=== PATIENT | female | born 1945 | race Caucasian/White ===

== ENCOUNTER → 2016-10-29 | Outpatient (CLI) | payer BC ==
[~2016-10-29] MED LIST: OPTIRAY 320 IV PRN
--- NOTE | 2016-10-29 12:18 | DIAGNOSTIC IMAGING REPORT ---
CT OF THE ABDOMEN AND PELVIS WITH AND WITHOUT CONTRAST ADRENAL PROTOCOL CLINICAL HISTORY: Elevated testosterone level in female. COMPARISON STUDY: Renal and pelvic ultrasound September 28, 2016. TECHNIQUE: Unenhanced, nephrographic and 15 minute delayed phase imaging was performed. Injection of 92 cc of Optiray [address] DOSE: 2668.32 mGycm FINDINGS: Lung bases are clear. No adrenal lesions are present. There is fatty infiltration of the liver. No biliary or pancreatic ductal dilatation is present. There are innumerable hypodense splenic lesions which measure up to 2.1 cm. These lesions demonstrate mild enhancement. Borderline splenomegaly is noted. There is no abdominal or pelvic lymphadenopathy. There is scarring within the midpole of the left kidney. There is a 7 mm right renal cyst. A few subcentimeter renal lesions are too small to characterize. The caliber and wall thickness of small and large bowel are normal. There is sigmoid diverticulosis without evidence for acute diverticulitis. No suspicious skeletal lesions are identified. IMPRESSION: 1. No adrenal masses. Normal CT of the adrenal glands. 2. Numerous hypodense mildly enhancing splenic lesions. These are nonspecific although likely benign. A follow-up contrast-enhanced CT of the abdomen in 6 months to ensure stability is recommended. 3. Fatty liver. Electronically signed by: To Shearer M.D. 10/29/2016 12:16 PM
== END | disposition home or self-care (01) ==
LOC: C.CTS 10:50
PROVIDERS: ATTEND Internal Medicine Endocrinology, Diabetes & Metabolism
DX: E34.9 Endocrine disorder, unspecified (principal); D73.89 Other diseases of spleen; K76.0 Fatty (change of) liver, not elsewhere classified; R89.9 Unspecified abnormal finding in specimens from other organs, systems and tissues

== ENCOUNTER → 2016-10-29 | Outpatient (CLI) | payer BC | END | disposition home or self-care (01) | LOC: C.LAB1850 11:35 | PROVIDERS: ATTEND Internal Medicine Endocrinology, Diabetes & Metabolism | DX: R89.9 Unspecified abnormal finding in specimens from other organs, systems and tissues (principal); E34.9 Endocrine disorder, unspecified ==

== ENCOUNTER → 2016-12-21 | Outpatient (CLI) | payer BC | END | disposition home or self-care (01) | LOC: C.LABMFLN 08:58 | PROVIDERS: ATTEND Obstetrics & Gynecology Reproductive Endocrinology | DX: E28.0 Estrogen excess (principal); R79.89 Other specified abnormal findings of blood chemistry ==

== ENCOUNTER → 2016-12-24 | Outpatient (CLI) | payer BC | END | disposition home or self-care (01) | LOC: C.LABMFLN 08:00 | PROVIDERS: ATTEND Obstetrics & Gynecology Reproductive Endocrinology | DX: E28.0 Estrogen excess (principal); R79.89 Other specified abnormal findings of blood chemistry ==

== ENCOUNTER → 2017-03-21 | Outpatient (CLI) | payer BC | END | disposition home or self-care (01) | LOC: C.LABMFLN 14:03 | PROVIDERS: ATTEND Obstetrics & Gynecology Reproductive Endocrinology | DX: Z79.899 Other long term (current) drug therapy (principal) ==

== ENCOUNTER → 2017-04-26 | Outpatient (CLI) | payer BC ==
[2017-05-03 22:07] LABS: V-ZOSTER CULT NOT ISOLATED
== END | disposition home or self-care (01) ==
LOC: C.LABSPEC 13:34
PROVIDERS: ATTEND Dermatology
DX: L25.9 Unspecified contact dermatitis, unspecified cause (principal); R21 Rash and other nonspecific skin eruption

== ENCOUNTER → 2017-09-25 | Outpatient (CLI) | payer BC | END | disposition home or self-care (01) | LOC: C.PATHSPEC 16:21 | PROVIDERS: ATTEND Dermatology | DX: L82.0 Inflamed seborrheic keratosis (principal) ==

== ENCOUNTER → 2017-11-20 | Outpatient (CLI) | payer BC | END | disposition home or self-care (01) | LOC: C.RDSM 17:42 | PROVIDERS: ATTEND Orthopaedic Surgery | DX: R52 Pain, unspecified (principal) ==

== ENCOUNTER → 2017-12-09 | Outpatient (CLI) | payer BC ==
[2017-12-09 12:15] LABS: BASO % 0.6 %; BASO ABS # 0.06 K/uL (0-0.2); EOS % 4.2 %; EOS ABS # 0.42 K/uL (0-0.5); HEMATOCRIT 39.3 % (37-47); HEMOGLOBIN 13.1 g/dL (12.0-16.0); IG# 0.03 K/uL (0.00-0.02); LYMPH % 24.6 %; LYMPH ABS # 2.45 K/uL (1.2-3.4); MEAN CELL VOLUME 89.7 fL (80-100); MEAN CORPUSCULAR HEMOGLOBIN 29.9 pg (25-34); MEAN CORPUSCULAR HGB CONC 33.3 g/dl (32-36); MEAN PLATELET VOLUME 10.2 fL (7.4-10.4); MONO % 8.9 %; MONO ABS # 0.89 K/uL (0.11-0.59); NEUT % 61.4 %; PLATELET COUNT 175 K/uL (130-400); RED CELL DISTRIBUTION WIDTH CV 14.5 % (11.5-14.5); RED CELL DISTRIBUTION WIDTH SD 47.3 fL (36.4-46.3); WHITE BLOOD COUNT 9.95 K/uL (4.8-10.8)
[2017-12-09 13:33] LABS: ALBUMIN 3.7 gm/dl (3.4-5.0); ALT/SGPT 37 U/L (12-78); BLOOD UREA NITROGEN 26 mg/dl (7-18); CALCIUM 9.1 mg/dl (8.5-10.1); CARBON DIOXIDE 28 mmol/L (21-32); CHOLESTEROL 200 mg/dl (0-200); CREATININE 0.97 mg/dl (0.60-1.20); GLUCOSE 88 mg/dl (70-99); POTASSIUM 4.4 mmol/L (3.5-5.1); SODIUM 139 mmol/L (136-145)
[2017-12-09 13:43] LABS: ALKALINE PHOSPHATASE 64 U/L (45-117); AST/SGOT 19 U/L (15-37); LDL CHOLESTEROL CALCULATED 112 mg/dl; TOTAL PROTEIN 7.7 gm/dl (6.4-8.2)
== END | disposition home or self-care (01) ==
LOC: C.LABMFLN 09:57
PROVIDERS: ATTEND Family Medicine
DX: E78.00 Pure hypercholesterolemia, unspecified (principal); D23.5 Other benign neoplasm of skin of trunk; L65.9 Nonscarring hair loss, unspecified; R89.9 Unspecified abnormal finding in specimens from other organs, systems and tissues; R79.89 Other specified abnormal findings of blood chemistry; L25.9 Unspecified contact dermatitis, unspecified cause; E03.9 Hypothyroidism, unspecified; Z85.828 Personal history of other malignant neoplasm of skin

== ENCOUNTER 2018-01-30 13:26 | Emergency (ER) | payer BC ==
[~2018-01-30] VITALS: Ht 160 cm; Wt 87.0 kg
[2018-01-30 13:29] VITALS: TEMP 36.5; Ht 160 cm; Wt 87.0 kg
--- NOTE | 2018-01-30 13:57 | EMERGENCY ROOM VISIT NOTE ---
History First contact with patient: 13:38 Chief Complaint: FOOT PAIN Stated Complaint: FOOT PAIN History of Present Illness The patient is a 72 year old female who presents to the Emergency Room who states that 2 nights ago she woke up at 4 am with sharp foot pain on the outer side of her left foot. 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 Pain is 7/10 without putting weight on it, and 10/10 when standing on it, and is unable to put weight on it. Denies h/o trauma to the area, open cuts in the skin, toe fungus, recent pedicures, surgeries to the area. Pt is on chronic therapy for hypertension and hyperlipidemia, but is not diabetic or immunosuppressed. Has no h/o gout. Denies beer drinking, eats lean meats. Denies chest pain difficulty breathing skin rashes abdominal pain numbness tingling. Review of Systems ROS See HPI for pertinent positives and negatives. Social History Smoking Status: Never Smoker Current/Historical Medications Scheduled Aspirin (Aspirin Ec), 81 MG PO DAILY Calcium Carbonate-Cholecalcife (Calcium Plus Vitamin D3), 1 CAP PO DAILY Coenzyme Q10 (Ubidecarenone) (Co Q 10), 1 CAP PO DAILY Cranberry-Vitamin C-Vitamin E (Cranberry Plus Vitamin C), 1 CAP PO DAILY Fish Oil ([place]-3), 1 CAP PO DAILY Krill Oil (Krill Oil), 350 MG PO DAILY Levothyroxine Sodium (Levothyroxine Sodium), 1 TAB PO DAILY Lisinopril (Zestril), 20 MG PO DAILY Physical Exam Vital Signs Date Time Temp Pulse Resp B/P (MAP) Pulse Ox O2 Delivery O2 Flow Rate FiO2 4//18 13:29 36.5 96 18 151/72 97 Room Air Physical Exam GENERAL: Awake, alert, well-appearing, in no distress HENT: Normocephalic, atraumatic. EYES: Normal conjunctiva. Sclera non-icteric. NECK: Supple. FROM. No JVD. RESPIRATORY: Clear to auscultation. CARDIAC: Regular rate, normal rhythm. Extremities warm and well perfused. Pulses equal. LOWER EXTREMITIES: Calves are equal size bilaterally and non-tender. No edema. No discoloration. MUSCULOSKELETAL: left foot is tender to palpation along lateral dorsal and plantar surface and along 5th and 4th metatarsal bones. Mild erythema and edema local to points of tenderness. No abrasions. Neurovascularly in tact. Distal phalanges are in tact and non tender. NEURO: No sensory motor deficits noted. SKIN: No rash or jaundice noted. Medical Decision & Procedures Laboratory Results 01/30/18 14:10 Red Blood Count 4.68, Mean Corpuscular Volume 88.2, Mean Corpuscular Hemoglobin 29.7, Mean Corpuscular Hemoglobin Concent 33.7, Mean Platelet Volume 10.2, Neutrophils (%) (Auto) 64.0, Lymphocytes (%) (Auto) 24.7, Monocytes (%) (Auto) 8.3, Eosinophils (%) (Auto) 2.6, Basophils (%) (Auto) 0.2, Neutrophils # (Auto) 5.92, Lymphocytes # (Auto) 2.29, Monocytes # (Auto) 0.77, Eosinophils # (Auto) 0.24, Basophils # (Auto) 0.02 01/30/18 14:10 Test 01/30/18 14:10 White Blood Count 9.26 K/uL (4.8-10.8) Red Blood Count 4.68 M/uL (4.2-5.4) Hemoglobin 13.9 g/dL (12.0-16.0) Hematocrit 41.3 % (37-47) Mean Corpuscular Volume 88.2 fL (80-100) Mean Corpuscular Hemoglobin 29.7 pg (25-34) Mean Corpuscular Hemoglobin Concent 33.7 g/dl (32-36) Platelet Count 164 K/uL (130-400) Mean Platelet Volume 10.2 fL (7.4-10.4) Neutrophils (%) (Auto) 64.0 % Lymphocytes (%) (Auto) 24.7 % Monocytes (%) (Auto) 8.3 % Eosinophils (%) (Auto) 2.6 % Basophils (%) (Auto) 0.2 % Neutrophils # (Auto) 5.92 K/uL (1.4-6.5) Lymphocytes # (Auto) 2.29 K/uL (1.2-3.4) Monocytes # (Auto) 0.77 K/uL (0.11-0.59) Eosinophils # (Auto) 0.24 K/uL (0-0.5) Basophils # (Auto) 0.02 K/uL (0-0.2) RDW Standard Deviation 44.5 fL (36.4-46.3) RDW Coefficient of Variation 13.8 % (11.5-14.5) Immature Granulocyte % (Auto) 0.2 % Immature Granulocyte # (Auto) 0.02 K/uL (0.00-0.02) Anion Gap 6.0 mmol/L (3-11) Est Creatinine Clear Calc Drug Dose 36.6 ml/min Estimated GFR () 42.4 Estimated GFR (Non- 36.6 BUN/Creatinine Ratio 17.6 (10-20) Uric Acid 8.7 mg/dl (2.6-7.2) Calcium Level 9.2 mg/dl (8.5-10.1) Total Bilirubin 0.5 mg/dl (0.2-1) Aspartate Amino Transf (AST/SGOT) 21 U/L (15-37) Alanine Aminotransferase (ALT/SGPT) 40 U/L (12-78) Alkaline Phosphatase 75 U/L (45-117) Total Protein 7.8 gm/dl (6.4-8.2) Albumin 3.8 gm/dl (3.4-5.0) Globulin 4.0 gm/dl (2.5-4.0) Albumin/Globulin Ratio 1.0 (0.9-2) ED Course 1339 Reviewed record, saw and assessed pt. Full history and phys exam done. 1400 Ordered cmp, cbc, uric acid, Foot XR. 1515 XR of foot is normal. Discussed with pt results, elev uric acid, and location of pain and redness and swelling more consistent with cellulitis -- keflex ordered, script sent to pharmacy. Pt agreeable with plan. Medical Decision The patient is a 72 year old female who presents to the Emergency Room who states that 2 nights ago she woke up at 4 am with sharp foot pain on the outer side of her left foot. 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 Pain is 7/10 without putting weight on it, and 10/10 when standing on it, and is unable to put weight on it. Denies h/o trauma to the area, open cuts in the skin, toe fungus, recent pedicures, surgeries to the area. Pt is on chronic therapy for hypertension and hyperlipidemia, but is not diabetic or immunosuppressed. Has no h/o gout. Denies beer drinking, eats lean meats. Denies chest pain difficulty breathing skin rashes abdominal pain numbness tingling. Diff dx: osteomyelitis, cellulitis, gout, fracture XR of foot reviewed, no evidence of overt fracture or abscess. Labs reviewed, pt does not have an elevated wbc. Uric acid is 8.7. Glucose is 144 and creatinine is 1.4 (baseline appears to be 0.9). Despite elev uric acid, redness swelling and pain is clearly over the 4th and 5th metatarsal area. Erythematous border was outlined here in the ED. Keflex given to empirically treat cellulitis. Instructions given to pt that should the redness significantly increase, with streaking up the leg and calf, to return to the ED. Regarding her abnormal lab values, these should be repeated in the primary office. Close follow up for resolution of symptoms is recommended. Pt agreeable with plan, and also to elevate extremity and use warm compresses to increase blood flow. Blood Pressure Screening Patient's blood pressure: Elevated blood pressure Blood pressure disposition: Referred to PCP Impression Primary Impression: Cellulitis of foot, left Departure Information Dispostion Home / Self-Care Condition GOOD Prescriptions Cephalexin Monohydrate (Keflex) 500 Mg Cap 1 CAP PO BID for 10 Days, #20 CAP Prov: Nadja Zhong M.D. 01/30/18 Referrals Jose Francisco Donahue M.D. (PCP) Patient Instructions My [facility] Resident Tracking Resident Involvement: Resident Care Provided Care Provided: Adult ED
--- NOTE | 2018-01-30 14:18 | EMERGENCY ROOM VISIT NOTE ---
History First contact with patient: 13:38 Chief Complaint: FOOT PAIN Stated Complaint: FOOT PAIN History of Present Illness The patient is a 72 year old female who presents to the Emergency Room with complaints of left lateral foot pain. The patient also notes the following associated symptoms, redness and swelling. This started today and is worse with walking. The patient has tried ibuprofen for relieving factors. 710 pain. Pt denies LOC, headache, fevers, chills, diaphoresis, visual changes, neck pain, chest pain, breathing difficulties, nausea, vomiting, abdominal pain , back pain, melena, hematochezia, urinary symptoms, numbness, weakness, lymphadenopathy, rash, or other complaints. Review of Systems See HPI for pertinent positives and negatives. A total of ten systems were reviewed and were otherwise negative. Social History Smoking Status: Never Smoker Current/Historical Medications Scheduled Aspirin (Aspirin Ec), 81 MG PO DAILY Calcium Carbonate-Cholecalcife (Calcium Plus Vitamin D3), 1 CAP PO DAILY Cephalexin Monohydrate (Keflex), 1 CAP PO BID Coenzyme Q10 (Ubidecarenone) (Co Q 10), 1 CAP PO DAILY Cranberry-Vitamin C-Vitamin E (Cranberry Plus Vitamin C), 1 CAP PO DAILY Fish Oil ([place]-3), 1 CAP PO DAILY Krill Oil (Krill Oil), 350 MG PO DAILY Levothyroxine Sodium (Levothyroxine Sodium), 1 TAB PO DAILY Lisinopril (Zestril), 20 MG PO DAILY Physical Exam Vital Signs Date Time Temp Pulse Resp B/P (MAP) Pulse Ox O2 Delivery O2 Flow Rate FiO2 01/30/18 15:33 88 18 148/82 97 Room Air 01/30/18 13:29 36.5 96 18 151/72 97 Room Air Physical Exam GENERAL: Awake, alert, well-appearing, in no distress HENT: Normocephalic, atraumatic. Oropharynx unremarkable. EYES: Normal conjunctiva. Sclera non-icteric. NECK: Supple. No nuchal rigidity. FROM. No masses. RESPIRATORY: Clear to auscultation. No wheezes. No rales. Normal respiratory effort. CARDIAC: Normal rate. Normal rhythm. No murmurs. No rubs. Extremities warm and well perfused. Pulses equal. No JVD. GI: Soft, non-distended. No tenderness to palpation. No rebound or guarding. No masses. RECTAL: Deferred. MUSCULOSKELETAL: Atraumatic. Chest examination reveals no tenderness. No joint edema. There is an erythematous patch over the lateral left foot. This is not over any of her joints. It is over the fourth and fifth metatarsal area. It is tender to the touch. There is no crepitus. No open wounds. No obvious bony deformity. No significant tenderness to the proximal or distal fifth metatarsal. Ankle joint appears normal. LOWER EXTREMITIES: Calves are equal size bilaterally and non-tender. No edema. No discoloration. NEURO: Normal sensorium. No sensory or motor deficits noted. SKIN: No rash or jaundice noted. No skin breakdown on the foot. Medical Decision & Procedures Laboratory Results 01/30/18 14:10 Red Blood Count 4.68, Mean Corpuscular Volume 88.2, Mean Corpuscular Hemoglobin 29.7, Mean Corpuscular Hemoglobin Concent 33.7, Mean Platelet Volume 10.2, Neutrophils (%) (Auto) 64.0, Lymphocytes (%) (Auto) 24.7, Monocytes (%) (Auto) 8.3, Eosinophils (%) (Auto) 2.6, Basophils (%) (Auto) 0.2, Neutrophils # (Auto) 5.92, Lymphocytes # (Auto) 2.29, Monocytes # (Auto) 0.77, Eosinophils # (Auto) 0.24, Basophils # (Auto) 0.02 01/30/18 14:10 Test 01/30/18 14:10 White Blood Count 9.26 K/uL (4.8-10.8) Red Blood Count 4.68 M/uL (4.2-5.4) Hemoglobin 13.9 g/dL (12.0-16.0) Hematocrit 41.3 % (37-47) Mean Corpuscular Volume 88.2 fL (80-100) Mean Corpuscular Hemoglobin 29.7 pg (25-34) Mean Corpuscular Hemoglobin Concent 33.7 g/dl (32-36) Platelet Count 164 K/uL (130-400) Mean Platelet Volume 10.2 fL (7.4-10.4) Neutrophils (%) (Auto) 64.0 % Lymphocytes (%) (Auto) 24.7 % Monocytes (%) (Auto) 8.3 % Eosinophils (%) (Auto) 2.6 % Basophils (%) (Auto) 0.2 % Neutrophils # (Auto) 5.92 K/uL (1.4-6.5) Lymphocytes # (Auto) 2.29 K/uL (1.2-3.4) Monocytes # (Auto) 0.77 K/uL (0.11-0.59) Eosinophils # (Auto) 0.24 K/uL (0-0.5) Basophils # (Auto) 0.02 K/uL (0-0.2) RDW Standard Deviation 44.5 fL (36.4-46.3) RDW Coefficient of Variation 13.8 % (11.5-14.5) Immature Granulocyte % (Auto) 0.2 % Immature Granulocyte # (Auto) 0.02 K/uL (0.00-0.02) Anion Gap 6.0 mmol/L (3-11) Est Creatinine Clear Calc Drug Dose 36.6 ml/min Estimated GFR () 42.4 Estimated GFR (Non- 36.6 BUN/Creatinine Ratio 17.6 (10-20) Uric Acid 8.7 mg/dl (2.6-7.2) Calcium Level 9.2 mg/dl (8.5-10.1) Total Bilirubin 0.5 mg/dl (0.2-1) Aspartate Amino Transf (AST/SGOT) 21 U/L (15-37) Alanine Aminotransferase (ALT/SGPT) 40 U/L (12-78) Alkaline Phosphatase 75 U/L (45-117) Total Protein 7.8 gm/dl (6.4-8.2) Albumin 3.8 gm/dl (3.4-5.0) Globulin 4.0 gm/dl (2.5-4.0) Albumin/Globulin Ratio 1.0 (0.9-2) Medications Administered Medications (Trade) Dose Ordered Sig/Nadia Route Start Time Stop Time Status Last Admin Dose Admin Cephalexin Monohydrate (Keflex Cap) 500 mg NOW ONCE PO 01/30/18 15:30 01/30/18 15:31 DC 01/30/18 15:32 500 MG Medical Decision Triage Nursing notes reviewed. The patient's presentation and history were concerning for foot pain Etiologies such as gout, fracture, cellulitis,DVT, infection, trauma, muscular, vascular, as well as others were entertained. The patient had an unremarkable CBC and chemistry panel. She had a minimal elevation of her uric acid. Her blood glucose was minimally elevated. The patient was reevaluated. She was updated. Her foot is tender laterally. She has had no trauma to suggest fracture although I did discuss a possible stress fracture issue with her. The patient had warmth, redness and tenderness. The area is not over a joint to be truly consistent with a gouty arthritis. The big concern would be for a developing cellulitis. She will be started on Keflex and need close outpatient follow-up. I gave my usual and customary discussion regarding this issue. The patient was seen and examined with Dr. Zhong, resident physician. We discussed the case and treatments ordered, reviewed the results, and determine the disposition. Please refer to the resident's note for additional details. I have been directly involved with the management and disposition as well as independently evaluated the patient as documented in this note. By the evaluation outlined above other emergent etiologies such as those listed in the differential, as well as others, were deemed relatively unlikely. The patient was educated about the findings as listed above. All questions were answered and the patient was pleased with the treatment. Return instructions were outlined and the patient was discharged in stable condition. The patient was referred to her PCP for follow-up for a recheck of the current condition. Impression Primary Impression: Foot pain Additional Impression: Cellulitis Departure Information Dispostion Home / Self-Care Prescriptions Cephalexin Monohydrate (Keflex) 500 Mg Cap 1 CAP PO BID for 10 Days, #20 CAP Prov: Nadja Zhong M.D. 01/30/18 Referrals Jose Francisco Donahue M.D. (PCP) Patient Instructions My [facility] Additional Instructions Cephalexin(Keflex) 500mg: Take one pill four times daily for 10 days for your skin infection. All antibiotics can cause diarrhea. If this occurs and you feel worse or it does not resolve in 1-2 days follow up with your doctor or return to the Emergency Department as this could be signs of serious underlying problems. Any medication can cause an allergic reaction, stop the pills immediately and return to the ER for rash, hives, breathing difficulties, or swelling. Acetaminophen(Tylenol) may be used for fever or pain. Use 1000mg every six hours as needed. Avoid using more than 4000mg in a 24 hour period. Warm compresses to the affected area 4 times daily for 15-20 minutes. Rest and drink plenty of fluids. Continue current medications. Return to the ER for severe pain, persistent fevers, spreading redness, or any worsening of your condition. Follow up with your primary physician next week for a recheck of the current condition, recheck of blood pressure, and it is recommended to have a repeat chemistry panel performed to evaluate your kidney function and blood sugar. Problem Qualifiers
[2018-01-30 14:21] LABS: BASO % 0.2 %; BASO ABS # 0.02 K/uL (0-0.2); EOS % 2.6 %; EOS ABS # 0.24 K/uL (0-0.5); HEMATOCRIT 41.3 % (37-47); HEMOGLOBIN 13.9 g/dL (12.0-16.0); IG# 0.02 K/uL (0.00-0.02); LYMPH % 24.7 %; LYMPH ABS # 2.29 K/uL (1.2-3.4); MEAN CELL VOLUME 88.2 fL (80-100); MEAN CORPUSCULAR HEMOGLOBIN 29.7 pg (25-34); MEAN CORPUSCULAR HGB CONC 33.7 g/dl (32-36); MEAN PLATELET VOLUME 10.2 fL (7.4-10.4); MONO % 8.3 %; MONO ABS # 0.77 K/uL (0.11-0.59); NEUT ABS # 5.92 K/uL (1.4-6.5); PLATELET COUNT 164 K/uL (130-400); RED CELL DISTRIBUTION WIDTH CV 13.8 % (11.5-14.5); RED CELL DISTRIBUTION WIDTH SD 44.5 fL (36.4-46.3); WHITE BLOOD COUNT 9.26 K/uL (4.8-10.8)
[2018-01-30] MEDS ORDERED: CALCCAP15 PO (14:22)
[2018-01-30] MEDS ORDERED: LISI-725 PO (14:22)
[2018-01-30] MEDS ORDERED: LEVO125T5 PO (14:22)
[2018-01-30] MEDS ORDERED: CRAN1CAP14 PO (14:22)
[2018-01-30] MEDS ORDERED: OMEG10007 PO (14:22)
[2018-01-30] MEDS ORDERED: KRIL1000 PO (14:22)
[2018-01-30] MEDS ORDERED: COEN1CAP17 PO (14:22)
[2018-01-30] MEDS ORDERED: ASPI81TA28 PO (14:22)
--- NOTE | 2018-01-30 14:35 | DIAGNOSTIC IMAGING REPORT ---
L FOOT MIN 3 VIEWS ROUTINE CLINICAL HISTORY: redness, swelling and pain lateral foot COMPARISON: None FINDINGS: Tarsometatarsal joints are intact. There is no fracture or suspicious lesion. There is moderate plantar and mild posterior calcaneal spurring. There is mild osteoarthritis within multiple articulations of the left foot. There is no radiographic evidence for stress fracture. IMPRESSION: 1. No acute fracture or dislocation within the left foot. 2. 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 Electronically signed by: To Sheraer M.D. 01/30/2018 2:33 PM Dictated Date/Time: 01/30/2018 2:32 PM
[2018-01-30 14:41] LABS: ALBUMIN 3.8 gm/dl (3.4-5.0); CALCIUM 9.2 mg/dl (8.5-10.1); CREATININE 1.41 mg/dl (0.60-1.20); POTASSIUM 4.1 mmol/L (3.5-5.1); URIC ACID 8.7 mg/dl (2.6-7.2)
[2018-01-30 14:43] LABS: TOTAL PROTEIN 7.8 gm/dl (6.4-8.2)
[2018-01-30] MEDS ORDERED: CEPHALEXIN MONOHYDRATE 250 MG CAP PO ONE (15:30)
[2018-01-30] MEDS ORDERED: CEPH500C PO (15:32)
[2018-01-30 15:33] VITALS: BP 148/82; PULSE 88; O2SAT 97
== END 2018-01-30 15:55 | disposition home or self-care (01) ==
LOC: C.EDB 13:29
DX: L03.116 Cellulitis of left lower limb (principal); E79.0 Hyperuricemia without signs of inflammatory arthritis and tophaceous disease; R73.9 Hyperglycemia, unspecified; Z79.82 Long term (current) use of aspirin

== ENCOUNTER → 2018-02-04 | Outpatient (CLI) | payer BC ==
[~2018-02-04] MED LIST changes: +ASPI81TA28 PO; +CALCCAP15 PO; +CEPH500C PO; +COEN1CAP17 PO; +CRAN1CAP14 PO; +KRIL1000 PO; +LEVO125T5 PO; +LISI-725 PO; +OMEG10007 PO; -OPTIRAY 320 IV PRN
[2018-02-04 14:03] LABS: BLOOD UREA NITROGEN 26 mg/dl (7-18); CALCIUM 9.3 mg/dl (8.5-10.1); CARBON DIOXIDE 26 mmol/L (21-32); CREATININE 1.07 mg/dl (0.60-1.20); GLUCOSE 106 mg/dl (70-99); POTASSIUM 4.6 mmol/L (3.5-5.1); SODIUM 136 mmol/L (136-145)
== END | disposition home or self-care (01) ==
LOC: C.LABMFLN 10:30
PROVIDERS: ATTEND Family Medicine
DX: R89.9 Unspecified abnormal finding in specimens from other organs, systems and tissues (principal)

== ENCOUNTER → 2018-03-06 | Outpatient (CLI) | payer BC ==
[~2018-03-06] MED LIST changes: -CEPH500C PO
[2018-03-06 13:21] LABS: ALBUMIN 3.6 gm/dl (3.4-5.0); AST/SGOT 23 U/L (15-37); BLOOD UREA NITROGEN 22 mg/dl (7-18); CARBON DIOXIDE 28 mmol/L (21-32); CHOLESTEROL 225 mg/dl (0-200); CREATININE 1.21 mg/dl (0.60-1.20); GLUCOSE 101 mg/dl (70-99); POTASSIUM 4.4 mmol/L (3.5-5.1); SODIUM 139 mmol/L (136-145); URIC ACID 9.7 mg/dl (2.6-7.2)
[2018-03-06 13:31] LABS: ALKALINE PHOSPHATASE 60 U/L (45-117); ALT/SGPT 39 U/L (12-78); LDL CHOLESTEROL CALCULATED 136 mg/dl; TOTAL PROTEIN 7.4 gm/dl (6.4-8.2)
== END | disposition home or self-care (01) ==
LOC: C.LABMFLN 07:24
PROVIDERS: ATTEND Family Medicine
DX: M10.9 Gout, unspecified (principal); E78.00 Pure hypercholesterolemia, unspecified; D48.5 Neoplasm of uncertain behavior of skin; I10 Essential (primary) hypertension

== ENCOUNTER → 2018-06-09 | Outpatient (CLI) | payer BC ==
[2018-06-09 12:42] LABS: BASO % 0.6 %; BASO ABS # 0.06 K/uL (0-0.2); EOS % 4.3 %; EOS ABS # 0.43 K/uL (0-0.5); HEMATOCRIT 39.5 % (37-47); HEMOGLOBIN 12.8 g/dL (12.0-16.0); IG# 0.06 K/uL (0.00-0.02); LYMPH % 24.6 %; LYMPH ABS # 2.45 K/uL (1.2-3.4); MEAN CELL VOLUME 91.4 fL (80-100); MEAN CORPUSCULAR HEMOGLOBIN 29.6 pg (25-34); MEAN CORPUSCULAR HGB CONC 32.4 g/dl (32-36); MONO % 6.1 %; MONO ABS # 0.61 K/uL (0.11-0.59); NEUT % 63.8 %; NEUT ABS # 6.35 K/uL (1.4-6.5); PLATELET COUNT 192 K/uL (130-400); RED CELL DISTRIBUTION WIDTH CV 14.9 % (11.5-14.5); RED CELL DISTRIBUTION WIDTH SD 49.8 fL (36.4-46.3); WHITE BLOOD COUNT 9.96 K/uL (4.8-10.8)
[2018-06-09 14:17] LABS: ALBUMIN 3.9 gm/dl (3.4-5.0); ALKALINE PHOSPHATASE 69 U/L (45-117); ALT/SGPT 53 U/L (12-78); AST/SGOT 27 U/L (15-37); BLOOD UREA NITROGEN 34 mg/dl (7-18); CALCIUM 8.9 mg/dl (8.5-10.1); CARBON DIOXIDE 25 mmol/L (21-32); CHOLESTEROL 150 mg/dl (0-200); CREATININE 1.26 mg/dl (0.60-1.20); GLUCOSE 104 mg/dl (70-99); LDL CHOLESTEROL CALCULATED 70 mg/dl; POTASSIUM 4.6 mmol/L (3.5-5.1); SODIUM 137 mmol/L (136-145); TOTAL PROTEIN 7.8 gm/dl (6.4-8.2); URIC ACID 7.6 mg/dl (2.6-7.2)
== END | disposition home or self-care (01) ==
LOC: C.LABMFLN 08:48
PROVIDERS: ATTEND Family Medicine
DX: M10.9 Gout, unspecified (principal); E03.9 Hypothyroidism, unspecified; E78.00 Pure hypercholesterolemia, unspecified; I10 Essential (primary) hypertension